=== PATIENT | female | born 1990 | race Caucasian/White ===

== ENCOUNTER → 2017-03-11 | Outpatient (CLI) | payer BC, OTHER | END | disposition home or self-care (01) | LOC: C.LABSPEC 18:00 | PROVIDERS: ATTEND Family Medicine | DX: R39.9 Unspecified symptoms and signs involving the genitourinary system (principal) ==

== ENCOUNTER → 2017-06-23 | Outpatient (CLI) | payer OTHER | END | disposition home or self-care (01) | LOC: C.PAPS 12:10 | PROVIDERS: ATTEND Family Medicine | DX: Z12.4 Encounter for screening for malignant neoplasm of cervix (principal) ==

== ENCOUNTER → 2017-09-25 | Outpatient (CLI) | payer OTHER | END | disposition home or self-care (01) | LOC: C.LAB1850 09:59 | DX: J30.9 Allergic rhinitis, unspecified (principal) ==

== ENCOUNTER 2019-12-23 09:46 | Inpatient (IN) ==
--- NOTE | 2019-12-23 14:05 | History & Physical Report ---
Date of Service December 23, 2019 Assessment & Plan (1) : - Admit to L&D for IOL - Admission labs ordered--follow results - Oh bulb placed for cervical ripening - GBS positive--will administer intrapartum penicillin G - Anticipate (2) Carrier of group B Streptococcus: (3) Supervision of normal first : (4) Velamentous insertion of umbilical cord, antepartum: Admission and Anticipated Discharge Date Admission Date: December 23, 2019 History of Present Illness Primary Care Provider: Montserrat Gonzalez MD Alexandra is a 29 y/o female currently at 40 6/7 WGA with an YENY 12/17/19 as determined by Ultrasound who is here for induction fo labor. Her was complicated by IUGR resolved at 36wk US and velamentous cord insertion. No contractions; good movement; no fluid loss; no bloody show Had regular appointments with OB. Blood type: A+ Antibody screen: Neg Labs 05/05/19 Rubella: Immune VDRL/RPR: neg Gonorrhea: neg Chlamydia: neg HIV: neg HbSAg: No GBS: Positive 11/24/19 COVID-19 negative 12/15/19 Other screens: cff-DNA: Neg (see scanned documents) CF: No SMA: No Allergies Allergy/AdvReac Type Severity Reaction Status Date / Time ragweed pollen Allergy Intermediate Watery Eye Verified 12/23/19 13:34 cat dander Allergy Rash Verified 12/23/19 13:34 dog dander Allergy Rash Verified 12/23/19 13:34 feathers Allergy Rash Verified 12/23/19 13:34 grass pollen Allergy Watery Eye Verified 12/23/19 13:34 horse dander Allergy Rash Verified 12/23/19 13:34 house dust mite Allergy Rash Verified 12/23/19 13:34 mold Allergy Cough Verified 12/23/19 13:34 No Known Drug Allergies Allergy Unknown Verified 12/23/19 13:34 rabbit dander Allergy Rash Verified 12/23/19 13:34 tree and shrub pollen Allergy Watery Eye Verified 12/23/19 13:34 weed pollen Allergy Watery Eye Verified 12/23/19 13:34 Home Medications Home Medications Medication Instructions Recorded Confirmed Type albuterol sulfate 90 mcg/actuation 2 puffs INHALATION .COMPLEX PRN gm 11/24/18 12/23/19 History aerosol inhaler cetirizine 10 mg capsule 10 mg PO BID cap 11/25/18 12/23/19 History montelukast 10 mg tablet 10 mg PO DAILY #90 tab 03/15/19 12/23/19 Rx prenat.vits,fracisco,[id number] 1 tab PO DAILY 04/27/19 12/23/19 History clobetasol 0.05 % shampoo 1 appln TOPICAL 2XWK #118 ml 08/29/19 12/22/19 Rx fluticasone propionate [Flovent 2 puffs INHALATION DAILY 12/23/19 12/23/19 History HFA] Patient History Medical History Allergic rhinitis Eczema Encounter for anatomic survey Encounter for IUD removal IUD contraception IUGR (intrauterine growth restriction) affecting care of mother Malpositioned IUD Paraguard 2019 Seasonal allergies Spotting affecting in first trimester Varicella vaccination Surgical History History of dental surgery Family History Unknown Myocardial infarction Allergic rhinitis Asthma Grandfather Myocardial infarction Sister Arnold-Chiari malformation Mother Polyp of colon, adenomatous Brother Polyp of colon, adenomatous Denies family history of Ovarian cancer Prostate cancer Breast cancer Colorectal cancer Social History Smoking Status: Never smoker Hx Alcohol Use: No Hx Substance Use: No Preferred Language: Tajik Communication Ability: Effective Visual Impairment: No Limitations Hearing Ability: Normal Beliefs That Will Affect Care: None marital status: marital status details: Nick Alatorre (37) [phone] Current Living Situation: Spouse Current Living Situation Comment: lives with spouse, dog current occupational status: employed current occupation: [employer] Other Information That Helps Us Care for You: No Feels Safe at Home: Yes Safety Concerns: Feels Safe At This Time Childhood Exposure to Second-Hand Smoke: No Dental Care, Regularly: Yes Physical Activity Frequency: 5-6 Times per Week Seatbelt Use: always Sunscreen Use: Yes Assistive Devices: None Review of Systems Denies fever or chills. Denies shortness of breath or cough Denies chest pain Denies breast pain Denies dysuria or hematuria Denies leg pain or leg swelling Denies headache or changes in vision Physical Exam Physical Exam: General: Alert, oriented. No acute distress. Cardiac: Regular rate and rhythm, no murmurs/rubs/gallops. Respiratory: Clear to auscultation bilaterally a/p, no wheezes/rales/rhonchi. No increased work of breathing. Symmetrical chest rise. No respiratory distress. Abdomen: Gravid. Vertex position. + heart tones. - palpable contractions. Pelvic: Dilation 1cm; Effacement 50%; Station -[address] Burch External FHT and external uterine monitors used; Category I tracing;Moderate FHT variability. Lower Extremities: No lower extremity edema or swelling. No deep calf pain. Brittney's negative bilaterally. Results & Data ([facility]) Vital Signs (Past 12 Hours) Vital Signs Temp Pulse Resp BP 12/23/19 13:18 36.5 C 20 12/23/19 13:13 91 H 131/74 Supervising Physician Co-Signing Physician Notes Resident Physician Supervision Note: I was present with Dr. Liang during the history and exam. I discussed the case with the resident and agree with the findings and plan as documented in the note. Any exceptions or clarifications are listed here: 29-year-old 1 para 0 at 40+ weeks gestational age by first trimester ultrasound admitted for postdates induction. course remarkable for a velamentous cord insertion. Growth ultrasounds throughout the suggested possible IUGR but abdominal circumference is an estimated weight greater than the 10th percentile. Patient with normal genetic testing. Induction delayed secondary to census on labor and delivery. Cervical Oh placed and Pitocin initiated per induction protocol. Patient with positive GBS and will be on penicillin throughout labor. Will rupture membranes after Oh bulb dislodges and the second dose of penicillin is in. Documented By: Yrn Burch Jr, MD, FACOG Resident Activity Tracking Resident Involvement: Resident Care Provided Care Provided: OB Delivery
[2019-12-23] MEDS ORDERED: OXYTOCIN 30 UNITS/500 ML BAG IV PRN ×2 (14:11)
[2019-12-23 14:32] LABS: Hematocrit (blood only) 35.2 % (37-47); Hemoglobin 11.8 g/dL (12.0-16.0); Mean Corpuscular Hemoglobin 31.6 pg (25-34); Mean Corpuscular Volume 94.4 fL (80-100); Mean Platelet Volume 10.9 fL (7.4-10.4); Platelet Count 254 K/uL (130-400); RDW Standard Deviation 44.9 fL (36.4-46.3); Red Blood Count 3.73 M/uL (4.2-5.4); White Blood Count 7.55 K/uL (4.8-10.8)
[2019-12-23 14:34] LABS: Mean Corpuscular Hgb Conc 33.5 g/dL (32-36)
[2019-12-23] MEDS ORDERED: PENICILLIN G POTASSIUM 6 MU in DEXTROSE 5% 250 ML IV ONE (14:45)
[2019-12-23] MEDS: LACTATED RINGER'S 1,000 ML IV PRN ×2 (14:56→22:27)
[2019-12-23] MEDS: PENICILLIN G POTASSIUM 3 MU in DEXTROSE 5% 100 ML IV PRN ×2 (19:10→23:45)
--- NOTE | 2019-12-23 20:42 | Labor Progress Brief Note ---
Date of Service December 23, 2019 Subjective Reason For Note: Routine Evaluation Can feel the ctx's Assessment & Plan (1) Prolonged , antepartum: - tracing Cat II, moderate variability with accels - AROM with IUPC - continue pitocin - doing well Admission and Anticipated Discharge Date Admission Date: December 23, 2019 Physical Exam Genitourinary: Cervix: 380/-2, AROM, clear, IUPC placed Results & Data ([facility]) Vital Signs (Past 12 Hours) Vital Signs Temp Pulse Resp BP 12/23/19 19:21 98.2 F 63 18 113/69 12/23/19 17:58 74 121/75 12/23/19 14:59 98.4 F 75 18 121/65 12/23/19 14:57 75 121/65 12/23/19 13:18 97.7 F 20 12/23/19 13:13 91 H 131/74 Coding Level of Care Code None Diagnoses Prolonged , antepartum O48.1
[2019-12-24] MEDS ORDERED: LIDOCAINE HCL 1% 20 ML VIAL ONE (00:21)
--- NOTE | 2019-12-24 02:47 | Delivery Summary ---
Vaginal Delivery Summary Date of Service December 24, 2019 Vaginal Delivery Summary Findings: Viable female with Apgars of 8 and 9. Baby delivered over a midline episiotomy. Placenta delivered spontaneously, velamentous cord insertion noted. Midline episiotomy repaired with 4-0 and 2-0 Vicryl. Estimated blood loss 300 cc. Labor course: The patient is a 29-year-old 1 para 0 with an EDC of 16 December who was admitted at 40+ weeks gestational age for postdates induction. The patient's EDC was established by a first trimester ultrasound. course remarkable for a velamentous cord insertion noted at the time of anatomy ultrasound. Growth ultrasounds briefly showed the estimated weight at less than 10th percentile but that resolved spontaneously. Patient had normal cell free DNA screening for the . The patient was GBS positive. Upon admission the patient had a cervical Oh placed for ripening and Pitocin was initiated per induction protocol. The Oh dislodged on its own approximately 4 cm later. The patient had been started on penicillin for the GBS. After her second dose of penicillin was in the patient had artificial rupture of membranes for clear fluid. An intrauterine pressure catheter was placed. The patient progressed through her first stage of labor unmedicated. She began her second stage and pushed for approximately 1 hour. The baby developed some decelerations lasting for 60 to 90 seconds during the second stage. As such, she delivered over a midline episiotomy. Cord was clamped and cut. Cord gases and cord blood samples were obtained. Placenta was delivered spontaneously. Midline episiotomy was repaired with 4-0 and 2-0 Vicryl in a routine fashion. Placenta was sent for pathological evaluation. Estimated blood loss 300 cc. Sponge and needle count was correct.
[2019-12-24 02:56] LABS: Base Excess Cord Arterial Bld -6.2 mEq/L (-9-1.8); CO2 Cord Arterial Blood 53 mmHg (39.1-73.5); HCO3 Cord Arterial Blood 22 mmol/L (19.7-28.5); PO2 Cord Arterial Blood 25 mmHg (4.1-31.7); pH Cord Arterial Blood 7.23 (7.1-7.38)
[2019-12-24 02:58] LABS: Oxygen Sat Cord Arterial Blood < 60.0 % (<60)
[2019-12-24 02:59] LABS: Base Excess Cord Venous Blood -5.1 mEq/L (-7.7-1.9); Cord Venous Blood HCO3 20 mmol/L (18.4-26.8); Cord Venous Blood PCO2 36 mmHg (30.4-57.2); Cord Venous Blood PO2 38 mmHg (14.1-43.3); Cord Venous Blood pH 7.35 (7.20-7.44)
[2019-12-24] MEDS ORDERED: OXYTOCIN 30 UNITS/500 ML BAG IV PRN (03:02)
[2019-12-24] MEDS ORDERED: HYDROCORTISONE ACETATE 25 MG SUPP PR PRN (03:02)
[2019-12-24] MEDS ORDERED: SUPERCREAM 0.870% 15 GM JAR EXT PRN (03:02)
[2019-12-24] MEDS ORDERED: BENZOCAINE 20% AER SPR 82.5 GM CAN EXT PRN (03:02)
[2019-12-24] MEDS ORDERED: ALBUTEROL HFA 8 GM INHALER INH PRN (03:02)
[2019-12-24] MEDS ORDERED: ACETAMINOPHEN 325 MG TAB PO PRN (03:02)
[2019-12-24] MEDS ORDERED: DIPHTHERIA/TETANUS/PERTUSSIS 0.5 ML SYR/VIAL IM ONE (03:02)
[2019-12-24] MEDS ORDERED: ACETAMINOPHEN W/CODEINE #3 1 TAB PO PRN (03:02)
[2019-12-24] MEDS: IBUPROFEN 600 MG TAB PO PRN ×3 (08:40→23:15)
[2019-12-24] MEDS: FERROUS SULFATE 325 MG TAB PO SCH (08:41)
[2019-12-24] MEDS: PRENATAL VITAMIN 1 TAB PO SCH (08:41)
[2019-12-24] MEDS: DOCUSATE SODIUM 100 MG CAP PO SCH ×2 (08:41→21:12)
[2019-12-24] MEDS ORDERED: FLUTICASONE HFA 110MCG INHALER INH SCH (09:00)
[2019-12-24] MEDS ORDERED: MONTELUKAST SODIUM 10 MG TABLET PO SCH (09:00)
[2019-12-24] MEDS ORDERED: CETIRIZINE HCL 10 MG TABLET PO SCH (09:00)
[2019-12-25] MEDS: IBUPROFEN 600 MG TAB PO PRN ×3 (05:49→20:14)
--- NOTE | 2019-12-25 08:29 | Obstetrical Progress Note ---
Date of Service December 25, 2019 Assessment & Plan (1) Status post normal vaginal delivery: 29 y/o PP1 s/p , doing well VSS Meeting all milestones A+/rub imm/ Encourage routine care Desires d/c today, will consider pending peds as pt is meeting all pp milestones Subjective Ambulation: ambulating normally Voiding: no voiding problems Passing Gas:: Yes Diet Tolerance:: regular diet Lochia:: Moderate (improving) Feeding Type:: breast feeding Minimal abd pain, primarily just cramping when Review of Systems All systems reviewed & are unremarkable except as noted in Subjective Physical Exam Constitutional WD/WN, vitals as above + not well nourished and no acute distress Respiratory normal respiratory effort; no respiratory distress and no labored breathing Auscultation: lungs clear to auscultation bilaterally Cardiovascular RRR, no murmur, no edema Extremities: no calf tenderness and no pedal edema No calf erythema Gastrointestinal (Abdomen) Inspection/Auscultation: abdomen normal to inspection Percussion/Palpation: abdomen soft; abdomen nontender and no guarding Fundus firm below umbilicus, NT Psychiatric A+Ox3, euthymic affect Results & Data ([facility]) Vital Signs (Past 12 Hours) Vital Signs Temp Pulse Resp BP 12/24/19 23:20 97.7 F 65 18 107/71
[2019-12-25] MEDS: FERROUS SULFATE 325 MG TAB PO SCH (10:07)
[2019-12-25] MEDS: PRENATAL VITAMIN 1 TAB PO SCH (10:07)
[2019-12-25] MEDS: DOCUSATE SODIUM 100 MG CAP PO SCH ×2 (10:07→20:14)
[2019-12-25] MEDS ORDERED: bisacodyL 5 MG TABEC PO SCH (20:00)
[2019-12-26] MEDS: IBUPROFEN 600 MG TAB PO PRN ×2 (03:17→08:07)
--- NOTE | 2019-12-26 06:10 | Obstetrical Progress Note ---
Date of Service <Jenaro Mo MD - Last Filed: 12/26/19 06:59> December 26, 2019 Assessment & Plan <Jenaro Mo MD - Last Filed: 12/26/19 06:59> (1) : - PNL: Rh pos, RI, GBS pos (received intrapartum Penicillin G), COVID neg - Feels well today. Eating well, voiding well, ambulating well - Pain well controlled with ibuprofen 600mg Q4H PRN - Routine care -- OOB, ambulation, diet progression as tolerated - After discharge will have 6 week follow-up with Dr. Burch - Plan for d/c today Day #:: 2 Subjective <Jenaro Mo MD - Last Filed: 12/26/19 06:59> Alexandra Villatoro is a 29 y/o female who is PPD #2 following at 40 6/7 weeks. She reports feeling well overall this morning. Light abdominal cramping and [_]/10 pain well managed on analgesics. Voiding well. Tolerating meals overnight without difficulty. Patient has been able to ambulate some. Has persistent lochia with some improvement this morning. Currently . Review of Systems Denies fever or chills. Denies shortness of breath or cough. Denies chest pain. Denies breast pain. Denies dysuria. Denies leg pain or leg swelling. Denies headache or changes in vision. Physical Exam <Jenaro Mo MD - Last Filed: 12/26/19 06:59> General: Alert, oriented. No acute distress. Cardiac: Regular rate and rhythm. No murmurs. Respiratory: Clear to auscultation bilaterally a/p, no wheezes/rales/rhonchi. No increased work of breathing. Symmetrical chest rise. No respiratory distress. Abdomen: Soft, nontender, nondistended. Bowel sounds present. Uterus: Uterine fundus firm, palpable 2 cm below umbilicus. Lower Extremities: No lower extremity edema or swelling. No deep calf pain. Brittney's negative bilaterally. Results & Data ([facility]) <Jenaro Mo MD - Last Filed: 12/26/19 06:59> Vital Signs (Past 12 Hours) Vital Signs Temp Pulse Resp BP Pulse Ox 12/25/19 23:10 36.6 C 75 18 117/76 12/25/19 19:45 36.6 C 78 18 125/80 98 <Dinora Boggs MD - Last Filed: 12/26/19 07:12> Co-Signing Physician Notes Resident Physician Supervision Note: I interviewed and examined the patient. Discussed with Dr. Liang and agree with findings and plan as documented in the note. Any exceptions or clarifications are listed here: Pt reports minimal pain, only really with . Stable for d/c home today Documented By: Dinora Boggs MD Resident Activity Tracking <Jenaro Mo MD - Last Filed: 12/26/19 06:59> Resident Involvement: Resident Care Provided Care Provided: OB Delivery
[2019-12-26] MEDS: DOCUSATE SODIUM 100 MG CAP PO SCH (08:07)
[2019-12-26] MEDS: FERROUS SULFATE 325 MG TAB PO SCH (08:07)
[2019-12-26] MEDS: PRENATAL VITAMIN 1 TAB PO SCH (08:07)
[2019-12-26 08:22] LABS: Hematocrit (blood only) 30.4 % (37-47)
== END 2019-12-26 10:34 | disposition home or self-care (01) | DRG 807 ==
LOC: 4S1 13:06 → 4S2 12-24 05:37

== ENCOUNTER 2021-07-28 22:40 | Inpatient (IN) ==
[2021-07-28] MEDS ORDERED: LACTATED RINGER'S 1,000 ML IV PRN (23:00)
[2021-07-28] MEDS ORDERED: OXYTOCIN 30 UNITS/500 ML BAG IV PRN ×2 (23:00→23:47)
[2021-07-28] MEDS ORDERED: PENICILLIN G POTASSIUM 6 MU in DEXTROSE 5% 250 ML IV STA (23:00)
--- NOTE | 2021-07-28 23:03 | History & Physical Report ---
Date of Service July 28, 2021 Assessment & Plan (1) Group B streptococcal carriage complicating : (2) Normal labor: Plan: ADMIT. expectantly manage. attempt to treat gbs. fetus category one. anticipate . last delivery went unmedicated. History of Present Illness Chief Complaint: contractions Primary Care Provider: Montserrat Gonzalez MD Patient is a 31yowf with iup at40 1/ who presents to labor and delivery with contractions. Started earlier today and much more uncomfortable this evening. and Delivery Plans Covid Vaccine #1 05/16/20 (Pfizer) Covid Vaccine #2 05/09/20 Group B strep positive OB Labs: Blood Type A Positive 12/20/20 Antibody Screen NEGATIVE 12/20/20 Hemoglobin 11.7 g/dL (12.0-16.0) L 05/09/21 Hematocrit 35.7 % (37-47) L 05/09/21 Mean Corpuscular Volume 88.9 fL (80-100) 12/20/20 Platelet Count 294 K/uL (130-400) 12/20/20 Rubella IgG Antibody Immune (Immune) 12/20/20 Rapid Plasma Reagin Nonreactive (Nonreactive) 12/20/20 Hepatitis B Surface Antigen Neg (Neg) 12/20/20 HIV (1&2) Ab and P24 Ag, 4th Gener Neg (Neg) 12/20/20 Glucose 1 Hour 50 gm Load 69 mg/dl (70-130) L 05/09/21 OB Optional Labs: Chlamydia trachomatis RNA NOT DETECTED (NOT DETECTED) 12/20/20 Neisseria gonorrhoeae RNA NOT DETECTED (NOT DETECTED) 12/20/20 Labs Reviewed: declines cfDNA- declined cf/sma--akh declines quad/msafp--smp gbs positive Allergies Allergy/AdvReac Type Severity Reaction Status Date / Time ragweed pollen Allergy Intermediate Watery Eye Verified 07/24/21 09:40 cat dander Allergy Rash Verified 07/24/21 09:40 dog dander Allergy Rash Verified 07/24/21 09:40 feathers Allergy Rash Verified 07/24/21 09:40 grass pollen Allergy Watery Eye Verified 07/24/21 09:40 horse dander Allergy Rash Verified 07/24/21 09:40 house dust mite Allergy Rash Verified 07/24/21 09:40 mold Allergy Cough Verified 07/24/21 09:40 No Known Drug Allergies Allergy Unknown Verified 07/24/21 09:40 rabbit dander Allergy Rash Verified 07/24/21 09:40 tree and shrub pollen Allergy Watery Eye Verified 07/24/21 09:40 weed pollen Allergy Watery Eye Verified 07/24/21 09:40 Home Medications Medication Instructions Recorded Confirmed Type albuterol sulfate 90 mcg/actuation 2 puffs INHALATION .COMPLEX PRN gm 11/24/18 07/24/21 History aerosol inhaler prenat.vits,fracisco,[id number]-ajff-afvxc 1 tab PO DAILY 04/27/19 07/24/21 History cetirizine 10 mg capsule 10 mg PO BID cap 03/14/20 07/24/21 History clobetasol 0.05 % shampoo 1 applic TOPICAL 2XWK #118 ml 01/04/21 07/24/21 Rx montelukast 10 mg tablet 10 mg PO QPM #90 tab 02/20/21 07/24/21 Rx fluticasone propionate 110 See Rx Instructions .ROUTE 04/09/21 07/24/21 Rx mcg/actuation HFA aerosol inhaler .COMPLEX #24 g (Flovent HFA) Patient History Medical History Asthma rare use of PRN inh Chronic SI joint pain GERD (gastroesophageal reflux disease) TMJ (temporomandibular joint disorder) Surgical History History of reduction of closed fracture LUE History of wisdom tooth extraction Family History Unknown Myocardial infarction Allergic rhinitis Asthma Grandfather Myocardial infarction Sister Arnold-Chiari malformation Mother Polyp of colon, adenomatous Brother No problems noted. Father No problems noted. Sister Allergic rhinitis Asthma Daughter No problems noted. Other No family history of adverse response to anesthesia Denies family history of Ovarian cancer Prostate cancer Crohn's disease Breast cancer Colorectal cancer Ulcerative colitis Social History Smoking Status: Never smoker Second Hand Exposure: No; Hx Alcohol Use: No Hx Substance Use: No Preferred Language: Cape Verdean Communication Ability: Effective Visual Impairment: No Limitations Hearing Ability: Normal Anger Control Counselor Required: No Beliefs That Will Affect Care: None marital status: marital status details: Nick Alatorre (38) [phone] Current Living Situation: Spouse Current Living Situation Comment: lives with spouse, child, 1 dog current occupational status: employed current occupation: [employer] Feels Safe at Home: Yes Childhood Exposure to Second-Hand Smoke: No Dental Care, Regularly: Yes Physical Activity Frequency: 5-6 Times per Week Seatbelt Use: always Sunscreen Use: Yes Assistive Devices: None OB History Past Pregnancies Del. Date GA wks Lbr Lgth wt Sex Type del Anes Place Del Prov ? Comment 12/24/19 41 7lb 4.1oz F Loc al [facility] Dr. Burch No [employer] History noncontributory Physical Exam Constitutional: WD/WN, vitals as above Gastrointestinal (Abdomen): soft gravid Psychiatric: A+Ox3, euthymic affect Genitourinary: cx--8cm per nursing toco--q3-5 efm--130s wtih mod varaibility, accels present, no decels Code Status & VTE Plan VTE Prophylaxis Plan VTE Prophylaxis will be ordered: No Coding Level of Care Code None Diagnoses Group B streptococcal carriage complicating O99.820 Normal labor O80; Z37.9
[2021-07-28] MEDS ORDERED: ERYTHROMYCIN OP OINT 1 GM PKT ONE (23:15)
[2021-07-28] MEDS ORDERED: LIDOCAINE 1% LOCAL 20 ML VIAL ONE (23:26)
[2021-07-28] MEDS ORDERED: DIPHTHERIA/TETANUS/PERTUSSIS 0.5 ML SYR/VIAL IM ONE (23:47)
[2021-07-28] MEDS ORDERED: oxyCODONE/ACETAMINOPHEN 5mg/325mg TAB PO PRN (23:47)
[2021-07-28] MEDS ORDERED: HYDROCORTISONE ACETATE 25 MG SUPP PR PRN (23:47)
[2021-07-28] MEDS ORDERED: IBUPROFEN 600 MG TAB PO PRN (23:47)
[2021-07-28] MEDS ORDERED: BENZOCAINE 20% AER SPR 82.5 GM CAN EXT PRN (23:47)
--- NOTE | 2021-07-28 23:53 | Delivery Summary ---
Vaginal Delivery Summary Date of Service July 28, 2021 Vaginal Delivery Summary and 1st Degree LAC Pre-operative Diagnosis: at 40 weeks active labor gbs positive Post-operative Diagnosis: same Procedure: arom bilateral labial laceration and repair EBL: 500cc Anesthesia: local infiltration of lidocaine Procedure: Patient presented to labor and delivery in advanced active labor. She was gbs positive but presented at 8 and 10 min later was ant lip. Arom for clear fluid. Progressed to pushing involuntarily. The patient pushed for 2 contractions to deliver a viable male infant in sakshi position. The rest of the infant was then delivered without difficulty with a nuchal arm and body cord. The baby was vigorous. The nose and mouth were bulb suctioned and the was placed in the maternal abdomen for drying and attention. Cord was clamped and cut at one minute of life. Cord blood and segment obtained. Placenta delivered spontaneous, intact with a three vessel cord. Cervix/sulci/rectum were intact. Bilateral labial lacerations were repaired in the normal standard fashion. Hemostasis obtained with dilute pitocin and fundal massage. Apgars were 8/9. Mother and baby doing well at the end of the delivery. [facility] Vaginal Delivery Charge Delivery Type Details: and 1st Degree LAC
[2021-07-29 01:42] LABS: Hematocrit (blood only) 37.4 % (37-47); Hemoglobin 12.5 g/dL (12.0-16.0); Mean Corpuscular Hemoglobin 30.7 pg (25-34); Mean Corpuscular Hgb Conc 33.4 g/dL (32-36); Mean Corpuscular Volume 91.9 fL (80-100); Platelet Count 283 K/uL (130-400); RDW Coefficient of Variation 13.2 % (11.5-14.5); RDW Standard Deviation 44.1 fL (36.4-46.3); Red Blood Count 4.07 M/uL (4.2-5.4)
[2021-07-29] MEDS ORDERED: PENICILLIN G POTASSIUM 3 MU in DEXTROSE 5% 100 ML IV PRN (02:01)
[2021-07-29] MEDS: ACETAMINOPHEN 325 MG TAB PO PRN ×3 (02:09→20:11)
--- NOTE | 2021-07-29 06:17 | Obstetrical Progress Note ---
Date of Service <Doreen Glover MD - Last Filed: 07/29/21 07:37> July 29, 2021 Assessment & Plan <Doreen Glover MD - Last Filed: 07/29/21 07:37> (1) Vaginal delivery: 31 yo now PPD1 from at 40wk1d -Continue routine care - team to see pt if available today, otherwise tomorrow -Vitals reviewed- HDS, afebrile -GBS+, did not receive PCN during labor -Pain control with ibuprofen, acetaminophen PRN -Hgb 12.5, stable <Adelita Lee MD, FACOG - Last Filed: 07/29/21 07:51> (1) Vaginal delivery: Subjective <Doreen Glover MD - Last Filed: 07/29/21 07:37> Ambulation: ambulating normally Voiding: no voiding problems Passing Gas:: No Diet Tolerance:: regular diet Lochia:: Small Feeding Type:: breast feeding Current Pain Level(1-10): 3 Pt doing well overall, no acute complaints or distress. Mild cramp pain well controlled with medication. Some difficulties with , would like to see team today if available. Review of Systems Denies fever/chills. Denies dyspnea, cough. Denies chest pain. Denies breast pain or discharge. Denies dysuria. Denies headache. Denies back pain. Physical Exam <Doreen Glover MD - Last Filed: 07/29/21 07:37> General: Alert, oriented, no acute distress Cardiac: Regular rate and rhythm, normal S1, S2. No murmurs appreciated. Respiratory: Clear to auscultation b/l with good air flow entry, symmetric chest rise and fall. No wheezes or crackles. No increased work of breathing or accessory muscle use Abdomen: Soft, nontender, nondistended. Fundus firm and palpable at 2 cm below umbilicus. No guarding or rebound. Skin: No rashes or lesions Extremities: Warm, dry, well-perfused with capillary refill <2s b/l. No lower extremity edema, erythema, swelling or calf tenderness b/l. Results & Data ([facility]) <Doreen Glover MD - Last Filed: 07/29/21 07:37> Vital Signs (Past 12 Hours) Vital Signs Temp Pulse Pulse Resp BP BP Pulse Ox 07/29/21 02:45 36.4 C L 84 20 110/72 96 07/29/21 01:42 80 107/63 07/29/21 01:27 79 103/64 07/29/21 01:12 68 122/67 07/29/21 00:57 69 118/68 07/29/21 00:43 88 18 108/69 07/29/21 00:28 71 18 120/71 07/29/21 00:12 59 L 18 126/73 07/28/21 23:57 69 18 124/65 07/28/21 23:42 36.8 C 68 18 118/74 07/28/21 23:07 69 109/71 07/28/21 22:59 20 <Adelita Lee MD, FACOG - Last Filed: 07/29/21 07:51> Co-Signing Physician Notes Resident Physician Supervision Note: I interviewed and examined the patient. Discussed with Dr. Glover and agree with findings and plan as documented in the note. Any exceptions or clarifications are listed here: Doing well. Routine care. Documented By: Adelita Lee MD, FACOG Resident Activity Tracking <Doreen Glover MD - Last Filed: 07/29/21 07:37> Resident Involvement: Resident Care Provided Care Provided: OB Delivery
[2021-07-29] MEDS: PRENATAL VITAMIN 1 TAB PO SCH (09:04)
[2021-07-29] MEDS: DOCUSATE SODIUM 100 MG CAP PO SCH ×2 (09:04→20:11)
[2021-07-29] MEDS ORDERED: bisacodyL 5 MG TABEC PO SCH (20:00)
[2021-07-30] MEDS: ACETAMINOPHEN 325 MG TAB PO PRN (02:26)
--- NOTE | 2021-07-30 04:57 | Obstetrical Progress Note ---
Date of Service <Doreen Glover MD - Last Filed: 07/30/21 06:36> July 30, 2021 Assessment & Plan <Doreen Glover MD - Last Filed: 07/30/21 06:36> (1) Vaginal delivery: 31 yo now PPD2 from at 40wk1d -Discharge today -Vitals reviewed- HDS, afebrile -GBS+, did not receive PCN during labor- baby to be monitored for 36 hours per pediatrics- d/c at noon today -F/u in 6 weeks with OB, discharge instructions reviewed with patient <Dinora Boggs MD - Last Filed: 07/30/21 06:54> (1) Vaginal delivery: Subjective <Doreen Glover MD - Last Filed: 07/30/21 06:36> Ambulation: ambulating normally Voiding: no voiding problems Passing Gas:: Yes Diet Tolerance:: regular diet Lochia:: Small Feeding Type:: breast feeding Current Pain Level(1-10): 3 Pt doing well overall, no acute complaints or distress. Mild cramp pain well controlled with medication. improving from day prior, would still like to see team. Review of Systems Denies fever/chills. Denies dyspnea, cough. Denies chest pain. Denies breast pain or discharge. Denies dysuria. Denies headache. Denies back pain. Physical Exam <Doreen Glover MD - Last Filed: 07/30/21 06:36> General: Alert, oriented, no acute distress Cardiac: Regular rate and rhythm, normal S1, S2. No murmurs appreciated. Respiratory: Clear to auscultation b/l with good air flow entry, symmetric chest rise and fall. No wheezes or crackles. No increased work of breathing or accesso ry muscle use Abdomen: Soft, nontender, nondistended. Fundus firm and palpable at 2 cm below umbilicus. No guarding or rebound. Skin: No rashes or lesions Extremities: Warm, dry, well-perfused with capillary refill <2s b/l. No lower extremity edema, erythema, swelling or calf tenderness b/l. Results & Data ([facility]) <Doreen Glover MD - Last Filed: 07/30/21 06:36> Vital Signs (Past 12 Hours) Vital Signs Temp Pulse Resp BP Pulse Ox 07/29/21 23:05 36.7 C 67 16 117/75 96 07/29/21 19:49 36.5 C 69 16 124/78 96 <Dinora Boggs MD - Last Filed: 07/30/21 06:54> Co-Signing Physician Notes Resident Physician Supervision Note: I interviewed and examined the patient. Discussed with Dr. Glover and agree with findings and plan as documented in the note. Any exceptions or clarifications are listed here: PP2 s/p , doing well. VSS, exam benign and wnl. Stable for d/c home today once peds clears baby Documented By: Dinora Boggs MD Resident Activity Tracking <Doreen Glover MD - Last Filed: 07/30/21 06:36> Resident Involvement: Resident Care Provided Care Provided: OB Delivery
[2021-07-30 06:25] LABS: Hematocrit (blood only) 38.1 % (37-47); Hemoglobin 12.7 g/dL (12.0-16.0)
[2021-07-30] MEDS: DOCUSATE SODIUM 100 MG CAP PO SCH (08:32)
[2021-07-30] MEDS: PRENATAL VITAMIN 1 TAB PO SCH (08:32)
[2021-07-30] MEDS ORDERED: bisacodyL 10 MG SUPP PR PRN (23:47)
== END 2021-07-30 13:07 | disposition home or self-care (01) | DRG 807 ==
LOC: OPB 22:40 → 4S1 22:41 → 4E2 07-29 02:13